=== PATIENT | male | born 1980 ===

== ENCOUNTER 2023-04-15 04:18 | Day surgery (SDC) | payer OTHER ==
[2023-04-14 09:25] VITALS: BMI 25.8
[2023-04-15] MEDS ORDERED: MIDAZOLAM HCL 2 MG/2 ML SINGLE DOSE VIAL ONE ×2 (10:53→11:13)
[2023-04-15] MEDS ORDERED: LIDOCAINE HCL/PF 2% SDV 5ML VIAL ONE (10:53)
[2023-04-15] MEDS ORDERED: PROPOFOL 20 ML ONE (10:53)
[2023-04-15] MEDS ORDERED: ceFAZolin SODIUM 1 GM VIAL IVPB ONE (11:14)
[2023-04-15] MEDS ORDERED: LIDOCAINE 1%/EPI 1:100000 (50 ML MULTI DOSE VIAL) INF ONE ×2 (11:18)
[2023-04-15 12:12] VITALS: RESP 20
[2023-04-15 14:40] VITALS: BP 130/78; PULSE 71; TEMP 97.8
== END 2023-04-15 13:05 | disposition home or self-care (01) ==
LOC: JASU-SURG 04:18
PROVIDERS: ATTEND Surgery
PROC: 0JB70ZZ Excision of Back Subcutaneous Tissue and Fascia, Open Approach (ICD-10-PCS; principal; 2023-04-15 10:45)
DX: L72.3 Sebaceous cyst (principal)
CPT/HCPCS: 88304-TC